=== PATIENT | female | born 2000 | race Caucasian/White ===

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

== ENCOUNTER 2023-08-07 10:53 | Emergency (ER) | payer MEDICAID ==
[~2023-08-07] VITALS: Ht 165.1 cm; Wt 81.6 kg
[~2023-08-07 10:53] MED LIST: FERR140T2 PO; [UNRECOGNIZED DRUG - CODE] PO
[2023-08-07 11:16] VITALS: BP_SYST 120; PULSE 79; RESP 16; TEMP 97.6; O2SAT 98
[2023-08-07 11:37] LABS: STREPTOCOCCUS A SCREEN (RAPID) NEGATIVE (NEGATIVE)
[2023-08-07 11:48] LABS: COVID19 ANTIGEN SOFIA FIA POSITIVE (NEGATIVE)
[2023-08-07 11:50] LABS: INFLUENZA TYPE A Negative (NEGATIVE); INFLUENZA TYPE B NEGATIVE (NEGATIVE)
[2023-08-07] MEDS ORDERED: ZIT250 PO (13:10)
== END 2023-08-07 13:50 | disposition home or self-care (01) ==
LOC: SED 10:53
DX: U07.1 COVID-19 (principal); J40 Bronchitis, not specified as acute or chronic; Z79.899 Other long term (current) drug therapy; Z79.2 Long term (current) use of antibiotics
CPT/HCPCS: 36415; 86403; 87081; 99283

== ENCOUNTER 2023-10-19 14:24 | Emergency (ER) | payer MEDICAID ==
[~2023-10-19] VITALS: Ht 162.6 cm; Wt 81.6 kg
[~2023-10-19 14:24] MED LIST changes: +ZIT250 PO
[2023-10-19 14:30] VITALS: BP_SYST 105; PULSE 90; RESP 18; TEMP 98.5; O2SAT 100
[2023-10-19] MEDS ORDERED: NEOM28.36 TP (14:45)
[2023-10-19] MEDS ORDERED: CEPH-548 PO (14:45)
[2023-10-19] MEDS ORDERED: DICL20GE TP (14:45)
[2023-10-19] MEDS: IBUPROFEN 600 MG TABLET PO ONE (14:47)
[2023-10-19] MEDS: cephALEXin 500 MG CAPSULE PO ONE (14:47)
[2023-10-19 14:56] VITALS: BP_SYST 105; PULSE 90; RESP 18; TEMP 98.5; O2SAT 100
[2023-10-20] MEDS ORDERED: CLIN-142 PO (13:22)
[2023-10-20] MEDS ORDERED: IBUP-1969 PO (13:22)
== END 2023-10-19 14:57 | disposition home or self-care (01) ==
LOC: SED 14:24
DX: L05.92 Pilonidal sinus without abscess (principal); Z79.899 Other long term (current) drug therapy; Z79.2 Long term (current) use of antibiotics
CPT/HCPCS: 99283

== ENCOUNTER 2023-10-20 12:28 | Emergency (ER) | payer MEDICAID ==
[~2023-10-20] VITALS: Ht 162.6 cm; Wt 81.6 kg
[~2023-10-20 12:28] MED LIST changes: +CEPH-548 PO; +DICL20GE TP; +NEOM28.36 TP
[2023-10-20 12:47] VITALS: BP_SYST 89; PULSE 123; RESP 16; TEMP 98.1; O2SAT 98
[2023-10-20] MEDS ORDERED: LIDOCAINE 1%, 20 ML MDV 20 ML ONE (13:18)
[2023-10-20] MEDS ORDERED: IBUP-1969 PO (13:22)
[2023-10-20] MEDS ORDERED: CLIN-142 PO (13:22)
[2023-10-20 13:30] VITALS: BP_SYST 89; PULSE 123; RESP 16; TEMP 98.1; O2SAT 98
[2023-10-20] MEDS ORDERED: BACITRACIN 1 GM OINT TP ONE (13:41)
[2023-10-20] MEDS: LIDOCAINE 1% 10 MG/ML, 20 ML MDV INJ ONE (13:51)
[2023-10-20] MEDS: BACITRACIN 1 GM OINT TP ONE (13:52)
== END 2023-10-20 13:45 | disposition home or self-care (01) ==
LOC: SED 12:28
DX: L05.01 Pilonidal cyst with abscess (principal); Z79.899 Other long term (current) drug therapy; Z79.2 Long term (current) use of antibiotics
CPT/HCPCS: 10080; 99283; J2001